=== PATIENT | female | born 2000 | race Hispanic/Latino ===

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

== ENCOUNTER 2023-01-10 21:14 | Emergency (ER) | payer SELFPAY ==
[~2023-01-10] VITALS: Ht 152.4 cm; Wt 100.7 kg
[2023-01-10] MEDS ORDERED: SODIUM CHLORIDE FLUSH 10 ML SYR IV PRN (21:45)
[2023-01-10 21:48] LABS: BASOPHILS % 0.3 % (0.0-1.0); EOSINOPHILS # (AUTO) 0.1 (0.0-0.4); EOSINOPHILS % 0.6 % (0.0-6.0); HEMATOCRIT 42.6 % (34.2-44.1); HEMOGLOBIN 14.3 g/dL (12.0-16.0); LYMPHOCYTES # (AUTO) 2.4 (1.0-3.2); LYMPHOCYTES % 24.5 % (18.0-39.1); MEAN CORPUSCULAR HEMOGLOBIN 28.9 pg (28-32); MEAN CORPUSCULAR HGB CONC 33.6 g/dL (31-35); MEAN CORPUSCULAR VOLUME 86.1 fL (81-99); MONOCYTES # (AUTO) 0.6 (0.2-0.8); NEUTROPHILS # (AUTO) 6.8 (2.1-6.9); NEUTROPHILS % 68.3 % (38.7-80.0); PLATELET COUNT 313 x10e3/uL (140-360); RED BLOOD COUNT 4.95 x10e6/uL (3.6-5.1); RED CELL DISTRIBUTION WIDTH 12.2 % (11.7-14.4); WHITE BLOOD COUNT 9.95 x10e3/uL (4.8-10.8)
[2023-01-10] MEDS ORDERED: SODIUM CHLORIDE 0.9% 500ML 500 ML ONE (22:06)
[2023-01-10 22:10] LABS: ALBUMIN 4.2 g/dL (3.5-5.0); ALBUMIN/GLOBULIN RATIO 1.3 (0.8-2.0); ANION GAP 12.7 mmol/L (8-16); CALCIUM 10.7 mg/dL (8.4-10.2); CREATININE, SERUM 0.86 mg/dL (0.57-1.11); POTASSIUM 3.7 mmol/L (3.5-5.1)
[2023-01-10] MEDS ORDERED: SODIUM CHLORIDE 0.9% 500ML 500 ML IV ONE (22:15)
[2023-01-10 22:45] LABS: CLARITY,URINE SL CLOUDY (CLEAR); COLOR,URINE YELLOW (YELLOW)
[2023-01-10 22:46] LABS: KETONES,URINE NEGATIVE (NEGATIVE); LEUKOCYTE ESTERASE ,URINE NEGATIVE (NEGATIVE); NITRITE,URINE NEGATIVE (NEGATIVE); PROTEIN,URINE DIPSTICK 1+ (NEGATIVE); URINE UROBILINOGEN 0.2 mg/dL (0.2 - 1)
[2023-01-10 22:50] LABS: BACTERIA,URINE MANY /HPF; RBC,URINE 0-5 /HPF (0-5)
[2023-01-10 22:51] LABS: EPITHELIAL CELLS,URINE MANY /LPF; WBC,URINE (MAN) 21-50 /HPF (0-5)
[2023-01-10] MEDS ORDERED: CEFDINIR300 MG PO (23:00)
[2023-01-10] MEDS ORDERED: PYRIDIUM200 MG PO (23:00)
[2023-01-10] MEDS ORDERED: ONDANSETRON HCL INJ 2MG/ML 2ML 2 MG/ML VIAL IV STA (23:04)
[2023-01-10] MEDS ORDERED: ONDANSETRON ODT4 MG SL (23:05)
[2023-01-10 23:21] VITALS: BP 125/72; PULSE 79; RESP 14; TEMP 98.4; O2SAT 100
== END 2023-01-10 23:20 | disposition home or self-care (01) ==
LOC: ER 21:20
DX: R10.30 Lower abdominal pain, unspecified (principal); N39.0 Urinary tract infection, site not specified
CPT/HCPCS: 36415; 80053; 81001; 84702; 85025; 99283; J2405; J7040

== ENCOUNTER 2024-05-07 05:21 | Emergency (ER) | payer BC, OTHER ==
[~2024-05-07] VITALS: Ht 152.4 cm; Wt 100.7 kg
[~2024-05-07 05:21] MED LIST changes: +CEFDINIR300 MG PO; +GUAIFENESIN-DM1 EAC1 PO; +ONDANSETRON ODT4 MG SL; +PYRIDIUM200 MG PO; +SINGULAIR10 MG PO; +ZYRTEC10 MG PO
[2024-05-07 05:48] VITALS: PULSE 68; RESP 19; TEMP 98.1
[2024-05-07 06:27] LABS: BILIRUBIN,URINE NEGATIVE (NEGATIVE); CLARITY,URINE CLEAR (CLEAR); COLOR,URINE YELLOW (YELLOW); GLUCOSE, URINE NEGATIVE (NEGATIVE); KETONES,URINE NEGATIVE (NEGATIVE); LEUKOCYTE ESTERASE ,URINE NEGATIVE (NEGATIVE); NITRITE,URINE NEGATIVE (NEGATIVE); PH,URINE 6 (5 - 7); PREGNANCY TEST, URINE NEGATIVE (NEGATIVE); PROTEIN,URINE DIPSTICK NEGATIVE (NEGATIVE); URINE UROBILINOGEN 0.2 mg/dL (0.2 - 1)
[2024-05-07 06:42] LABS: BACTERIA,URINE MODERATE /HPF; EPITHELIAL CELLS,URINE FEW /LPF
[2024-05-07 06:46] LABS: CORONAVIRUS COVID-19 AG NEGATIVE (NEGATIVE); INFLUENZA A AG NEGATIVE (NEGATIVE); INFLUENZA B AG NEGATIVE (NEGATIVE)
[2024-05-07] MEDS ORDERED: CEFDINIR300 MG PO (07:17)
[2024-05-07 07:31] VITALS: BP 125/72; PULSE 76; RESP 16; O2SAT 100
== END 2024-05-07 07:30 | disposition home or self-care (01) ==
LOC: ER 06:13
DX: R05.9 Cough, unspecified (principal); B34.9 Viral infection, unspecified; N39.0 Urinary tract infection, site not specified; R10.30 Lower abdominal pain, unspecified; R09.89 Other specified symptoms and signs involving the circulatory and respiratory systems; R53.83 Other fatigue; Z11.52 Encounter for screening for COVID-19
CPT/HCPCS: 81001; 81025; 99283

== ENCOUNTER 2024-10-10 21:52 | Emergency (ER) | payer SELFPAY ==
[~2024-10-10] VITALS: Ht 152.4 cm; Wt 100.7 kg
[2024-10-10 21:55] VITALS: PULSE 96; RESP 18; TEMP 98.5; O2SAT 96
== END 2024-10-10 22:05 | disposition home or self-care (01) ==
LOC: ER 21:59
DX: R05.9 Cough, unspecified (principal); U07.1 COVID-19; R09.89 Other specified symptoms and signs involving the circulatory and respiratory systems
CPT/HCPCS: 99282